=== PATIENT | male | born 1940 | race Caucasian/White ===

== ENCOUNTER 2021-01-09 21:41 | Inpatient (IN) | payer MEDICARE ==
[~2021-01-09] VITALS: Ht 175.3 cm; Wt 81.6 kg
[2021-01-09] MEDS ORDERED: IV NORMAL SALINE 1000 ML BAG IV ONE (22:00)
[2021-01-09 22:25] LABS: HEMATOCRIT 42.7 % (36.7-47.1); MEAN CORPUSCULAR VOLUME 88.9 fL (73.0-96.2); PLATELET COUNT (AUTO) 166 K/uL (152-348)
[2021-01-09] MEDS ORDERED: DONE5TAB34 PO (22:32)
[2021-01-09] MEDS ORDERED: LATA7.5D OP (22:32)
[2021-01-09 22:36] LABS: BILIRUBIN,DIRECT 0.2 mg/dL (0.0-0.2); BILIRUBIN,TOTAL 0.5 mg/dL (0.2-1.0); CREATININE 1.3 mg/dL (0.6-1.3); POTASSIUM 3.8 mmol/L (3.5-5.1); TOTAL PROTEIN, SERUM 6.7 g/dL (6.4-8.2)
--- NOTE | 2021-01-09 22:58 | NUR ---
[facility] paged for admission panel call. Awaiting call back from Dr. Tarango.
--- NOTE | 2021-01-09 23:20 | NUR ---
Dr. Tarango @ bedside for consult.
[2021-01-09] MEDS: ENOXAPARIN SODIUM 40 MG/0.4 ML DISP.SYRIN SQ SCH (23:30)
[2021-01-09] MEDS ORDERED: ACETAMINOPHEN 325 MG TABLET PO PRN (23:30)
[2021-01-09] MEDS ORDERED: IV 1/2NS 1000 ML 1,000 ML IV PRN (23:30)
[2021-01-09] MEDS ORDERED: MAGNESIUM HYDROXIDE 30 ML LIQUID UDC PO PRN (23:30)
[2021-01-09] MEDS ORDERED: Z GUARD REMEDY PASTE 57 GM TUBE TOP PRN (23:30)
[2021-01-09] MEDS ORDERED: ONDANSETRON 4 MG/2 ML VIAL IV PRN (23:30)
[2021-01-10] MEDS ORDERED: ENOXAPARIN SODIUM 40 MG/0.4 ML DISP.SYRIN SQ ONE (01:58)
--- NOTE | 2021-01-10 05:29 | NUR ---
Patient became very upset when director of casework department came to draw morning labs. Patient got up from bed stating, "I am sick and tired of all the noise going on, that is it I am leaving the hospital. I do not care how I am going to get home. I am going to leave." Patient increasedly started getting more aggressive and agitated. Tried to redirect at the moment, but unsuccessful. Call made out to Dr. Molina to request for a standby order for agitation, but Dr. Robertson, ERMD present and was able to put in some medication orders.
[2021-01-10] MEDS ORDERED: LORAZEPAM 2 MG/1 ML VIAL IM ONE (05:45)
[2021-01-10] MEDS ORDERED: diphenhydrAMINE 50 MG/1 ML VIAL IM ONE (05:45)
[2021-01-10] MEDS ORDERED: HALOPERIDOL LACTATE 5 MG/1 ML VIAL IM ONE (05:45)
[2021-01-10] MEDS ORDERED: diphenhydrAMINE 50 MG/1 ML VIAL ONE (05:53)
[2021-01-10] MEDS ORDERED: LORAZEPAM 2 MG/1 ML VIAL ONE (05:53)
[2021-01-10] MEDS ORDERED: HALOPERIDOL LACTATE 5 MG/1 ML VIAL ONE (05:53)
--- NOTE | 2021-01-10 05:59 | NUR ---
Was able to successfully redirect patient and convince patient to stay and wait for a bed upstairs.
[2021-01-10 06:59] LABS: HEMATOCRIT 43.7 % (36.7-47.1); MEAN CORPUSCULAR HEMOGLOBIN 30.4 uug (23.8-33.4); MEAN CORPUSCULAR VOLUME 88.6 fL (73.0-96.2); PLATELET COUNT (AUTO) 161 K/uL (152-348)
[2021-01-10 07:08] LABS: CREATININE 1.2 mg/dL (0.6-1.3); MAGNESIUM 2.3 mg/dL (1.8-2.4); PHOSPHOROUS 3.5 mg/dL (2.5-4.9)
[2021-01-10 07:18] LABS: THYROID STIMULATING HORMONE 2.557 mIU/mL (0.358-3.740)
--- NOTE | 2021-01-10 08:32 | NUR ---
Build Automation Engineer assumes care: hands off report received from RN Misael, patient is waiting for telemetry bed & nurse and belonging list 0716am: 1st contact with patient, he is alert, awake, oriented to name & place, moving all extremities, respiration:easy, non-labored, even & symmetrical, skin warm & dry, denies any discomfort@this time 0830am: room 321 given ,pending accepting nurse@this time
[2021-01-10] MEDS ORDERED: PANTOPRAZOLE SODIUM 40 MG VIAL ONE (08:54)
--- NOTE | 2021-01-10 08:54 | NUR ---
Patient refused to change to hospital gown@this time
[2021-01-10] MEDS: PANTOPRAZOLE SODIUM 40 MG TABLET.DR PO SCH (08:58)
--- NOTE | 2021-01-10 09:16 | NUR ---
Patient voids by urinal, calm & cooperative, still waiting for an accepting telemetry nurse@this time
[2021-01-10] MEDS ORDERED: ONDANSETRON 4 MG/2 ML VIAL IV PRN (10:30)
[2021-01-10] MEDS ORDERED: Z GUARD REMEDY PASTE 57 GM TUBE TOP PRN (10:30)
[2021-01-10] MEDS ORDERED: PANTOPRAZOLE SODIUM 40 MG TABLET.DR PO ONE (10:30)
[2021-01-10] MEDS ORDERED: ACETAMINOPHEN 325 MG TABLET PO PRN (10:30)
[2021-01-10] MEDS ORDERED: MAGNESIUM HYDROXIDE 30 ML LIQUID UDC PO PRN (10:30)
--- NOTE | 2021-01-10 10:30 | NUR ---
Received patient from ER awake alert and oriented times 4. No sign of distress noted at this time. Patient is able to ambulate from gurney to room. Skin is intact. Patient is refusing to change into a gown. Patient also refused SCD. Safety precautions are in place. Will continue to monitor.
[2021-01-10 10:57] VITALS: BP 161/80
[2021-01-10 15:28] VITALS: BP 117/64
--- NOTE | 2021-01-10 18:37 | NUR ---
low voltage technician report that patient had a 2 second pause. Will continue to monitor.
--- NOTE | 2021-01-10 18:39 | NUR ---
Patient left resting bed. No sign of distress noted. Patient insist that he is fine that nothing is wrong with him and is asking to be sent home. Safety measures implemented. Will endorse to the oncoming nurse.
--- NOTE | 2021-01-10 19:00 | NUR ---
PATIENT ALERT ORIENTED, NO SOB NO CHEST PAIN, TELE MONITOR SINUS RHYTHM. PATIENT HAS NO COMPLAIN OF PAIN AT THIS TIME, WANTED TO AMBULATE TO TOILET BUT SUGGESTED TO USE URINAL FOR SAFETY, PATIENT HAS NO SYNCOPAL EPISODES, CONT TO MONITOR.
[2021-01-10 20:35] VITALS: BP 108/53
[2021-01-10] MEDS: IV 1/2NS 1000 ML 1,000 ML IV PRN (21:05)
[2021-01-10] MEDS: LATANOPROST OPHT DROP 2.5 ML BOTTLE EACHEYE SCH (21:08)
[2021-01-11] MEDS: ENOXAPARIN SODIUM 40 MG/0.4 ML DISP.SYRIN SQ SCH ×2 (00:09→23:14)
[2021-01-11 00:17] VITALS: BP 120/68
[2021-01-11 04:30] VITALS: BP 121/73
--- NOTE | 2021-01-11 06:19 | NUR ---
PATIENT ALERT ORIENTED, NO SOB NO CHEST PAIN, NO COMPLAIN OF PAIN AT THIS TIME. PATIENT USES URINAL FOR BLADDER ELIMINATIONS, NO SYNCOPAL EPISODES, CONT TO MONITOR.
[2021-01-11 06:34] LABS: HEMATOCRIT 42.4 % (36.7-47.1); MEAN CORPUSCULAR HEMOGLOBIN 30.8 uug (23.8-33.4); PLATELET COUNT (AUTO) 162 K/uL (152-348)
[2021-01-11 06:54] LABS: CREATININE 1.2 mg/dL (0.6-1.3); MAGNESIUM 2.3 mg/dL (1.8-2.4); PHOSPHOROUS 3.3 mg/dL (2.5-4.9); POTASSIUM 4.3 mmol/L (3.5-5.1)
[2021-01-11] MEDS: PANTOPRAZOLE SODIUM 40 MG TABLET.DR PO SCH (07:06)
[2021-01-11] MEDS ORDERED: DONEPEZIL 5 MG TABLET PO SCH (09:00)
[2021-01-11] MEDS: IV 1/2NS 1000 ML 1,000 ML IV PRN ×2 (10:09→23:15)
[2021-01-11 11:32] VITALS: BP 126/71
[2021-01-11 15:29] VITALS: BP 147/76
[2021-01-11] MEDS: LATANOPROST OPHT DROP 2.5 ML BOTTLE EACHEYE SCH (20:10)
[2021-01-11 22:20] VITALS: BP 155/76
[2021-01-12 00:10] VITALS: BP 146/83
[2021-01-12 04:20] VITALS: BP 151/65
[2021-01-12] MEDS: PANTOPRAZOLE SODIUM 40 MG TABLET.DR PO SCH (06:03)
[2021-01-12 06:42] LABS: HEMATOCRIT 45.1 % (36.7-47.1); MEAN CORPUSCULAR HEMOGLOBIN 30.1 uug (23.8-33.4); MEAN CORPUSCULAR VOLUME 89.7 fL (73.0-96.2); PLATELET COUNT (AUTO) 171 K/uL (152-348)
[2021-01-12] MEDS ORDERED: CLINDAMYCIN PHOSPHATE 600 MG/4 ML VIAL ONE (06:44)
[2021-01-12] MEDS ORDERED: IOHEXOL 300MG/ML 50 ML VIAL ONE (07:02)
[2021-01-12] MEDS ORDERED: LIDOCAINE HCL 1% 20 ML VIAL ONE ×2 (07:02→07:03)
[2021-01-12] MEDS ORDERED: LIDOCAINE 1%-EPI 1:100,000 20 ML VIAL ONE ×2 (07:02)
[2021-01-12 07:05] LABS: CREATININE 1.1 mg/dL (0.6-1.3); MAGNESIUM 2.4 mg/dL (1.8-2.4); PHOSPHOROUS 3.1 mg/dL (2.5-4.9); POTASSIUM 4.3 mmol/L (3.5-5.1)
[2021-01-12] MEDS ORDERED: POLYMYXIN B SULFATE 500,000 UNITS VIAL ONE (07:06)
--- NOTE | 2021-01-12 07:30 | NUR ---
Patient received not on the floor. In OR at this time for procedure.
--- NOTE | 2021-01-12 09:06 | NUR ---
Patient received back from the OR, alert and oriented x4. No complaints of pain or discomforts at this time. No acute distress noted. Patient on 2L via NC at 100% O2 saturation. Right hand IV is patent running IVF as ordered. New orders for regular diet at this time. Call light within easy reach. Will continue to monitor.
[2021-01-12] MEDS: IV 1/2NS 1000 ML 1,000 ML IV PRN (14:46)
--- NOTE | 2021-01-12 14:53 | NUR ---
Patient was taken off of O2 because he is saturating at 96% on RA without any SOB or difficulties breathing. No acute distress noted.
[2021-01-12 16:12] VITALS: BP 126/63
[2021-01-12] MEDS: LATANOPROST OPHT DROP 2.5 ML BOTTLE EACHEYE SCH (20:06)
[2021-01-12 20:20] VITALS: BP 142/73
[2021-01-12] MEDS: ENOXAPARIN SODIUM 40 MG/0.4 ML DISP.SYRIN SQ SCH (23:30)
[2021-01-13] MEDS: IV 1/2NS 1000 ML 1,000 ML IV PRN (03:37)
[2021-01-13 04:20] VITALS: BP 157/78
[2021-01-13] MEDS: PANTOPRAZOLE SODIUM 40 MG TABLET.DR PO SCH (06:02)
[2021-01-13 06:51] LABS: HEMATOCRIT 43.5 % (36.7-47.1); MEAN CORPUSCULAR HEMOGLOBIN 30.6 uug (23.8-33.4); MEAN CORPUSCULAR VOLUME 89.1 fL (73.0-96.2); PLATELET COUNT (AUTO) 168 K/uL (152-348)
[2021-01-13 07:10] LABS: CREATININE 1.1 mg/dL (0.6-1.3); POTASSIUM 4.5 mmol/L (3.5-5.1)
--- NOTE | 2021-01-13 07:30 | NUR ---
Patient received in bed, alert and oriented x3. No complaints of pain or discomforts at this time. No acute distress noted. Patient on RA with no SOB or difficulties breathing. Right hand IV is patent running IVF as ordered. NSR on monitor. Call light within easy reach. Will continue to monitor.
[2021-01-13 07:49] VITALS: BP 162/84
--- NOTE | 2021-01-13 10:30 | NUR ---
PHYSICAL THERAPIST AT BEDSIDE. STEADY WITHOUT WALKER. REPORTS NO DIZZINESS WHEN STANDING AND WHEN AMBULATING. TOLERATED WELL.
[2021-01-13 11:00] VITALS: BP 147/77
[2021-01-13 14:54] VITALS: BP 145/74
--- NOTE | 2021-01-13 15:50 | NUR ---
Patient's Collette picked up patient. Both patient and patient's instructed on following up with primary care physician and community aide. Patient aware of home health for physical therapy. They expressed understanding of discharge instructions. Patient discharged in satisfactory condition with all his personal belongings.
[2021-01-13] MEDS ORDERED: LIDOCAINE-MPF 2% 5 ML VIAL MC ONE (15:54)
[2021-01-13] MEDS ORDERED: PROPOFOL 200 MG/20 ML BOTTLE IV ONE (15:54)
== END 2021-01-13 15:55 | disposition home health service (06) | DRG 243 ==
LOC: ER 21:49 → TELE3 01-10 10:26
PROVIDERS: ADMIT Student in an Organized Health Care Education/Training Program; ATTEND Hospitalist
PROC: 0JH606Z Insertion of Pacemaker, Dual Chamber into Chest Subcutaneous Tissue and Fascia, Open Approach (ICD-10-PCS; principal; 2021-01-12)
PROC: 02HK3JZ Insertion of Pacemaker Lead into Right Ventricle, Percutaneous Approach (ICD-10-PCS; 2021-01-12)
PROC: 02H63JZ Insertion of Pacemaker Lead into Right Atrium, Percutaneous Approach (ICD-10-PCS; 2021-01-12)
DX: I49.5 Sick sinus syndrome (principal); G91.2 (Idiopathic) normal pressure hydrocephalus; R55 Syncope and collapse; E86.0 Dehydration; Z20.822 Contact with and (suspected) exposure to COVID-19; F03.90 Unspecified dementia, unspecified severity, without behavioral disturbance, psychotic disturbance, mood disturbance, and anxiety; R73.03 Prediabetes; E78.5 Hyperlipidemia, unspecified; H40.9 Unspecified glaucoma; Z87.891 Personal history of nicotine dependence; Z98.2 Presence of cerebrospinal fluid drainage device; F12.11 Cannabis abuse, in remission; I25.10 Atherosclerotic heart disease of native coronary artery without angina pectoris; F10.21 Alcohol dependence, in remission; I70.0 Atherosclerosis of aorta
CPT/HCPCS: 36415; 70030-TC; 70450; 71045; 83605; 83735; 84100; 84443; 85025; 85610; 85730; 93005; 93307; 93880; 97161; A4649; A4663; C1898; C9113; G0378; J1200; J1630; J1650; J2060; J3490; J7030; Q9967